=== PATIENT | male | born 1990 | race African-American/Black ===

== ENCOUNTER 2021-01-02 15:21 | Emergency (ER) | payer OTHER ==
[2021-01-02 15:41] VITALS: BP 136/86; PULSE 85; TEMP 98.1; BMI 40.6
[2021-01-02] MEDS ORDERED: KETOROLAC TROMETHAMINE 30 MG/1 ML VIAL IM ONE (16:16)
[2021-01-02] MEDS ORDERED: KETOROLAC TROMETHAMINE 30 MG/1 ML VIAL ONE (17:15)
== END 2021-01-02 18:05 | disposition home or self-care (01) ==
LOC: JERFT 15:21
PROC: 3E0233Z Introduction of Anti-inflammatory into Muscle, Percutaneous Approach (ICD-10-PCS; principal; 2021-01-02)
DX: M54.5 Low back pain (principal)
CPT/HCPCS: 72050-TC-FY; 72070-TC-FY; 72100-TC-FY; 99284-25

== ENCOUNTER 2021-03-05 22:13 | Emergency (ER) | payer OTHER ==
[2021-03-05 22:16] VITALS: BP 122/84; PULSE 97; TEMP 97; BMI 38.0
[2021-03-05] MEDS ORDERED: CEPHALEXIN MONOHYDRATE 500 MG CAPSULE (UD) PO ONE (23:06)
[2021-03-05] MEDS ORDERED: IBUPROFEN 600 MG TABLET (FP) PO ONE ×2 (23:06→23:21)
[2021-03-05] MEDS ORDERED: SULFAMETHOXAZOLE/TRIMETHOPRIM 800MG/160MG D.S. TABLET PO ONE (23:06)
[2021-03-05] MEDS ORDERED: CEPHALEXIN MONOHYDRATE 500 MG CAPSULE (UD) ONE (23:21)
[2021-03-05] MEDS ORDERED: SULFAMETHOXAZOLE/TRIMETHOPRIM 800MG/160MG D.S. TABLET ONE (23:22)
== END 2021-03-05 23:51 | disposition home or self-care (01) ==
LOC: JER 22:13
DX: B35.3 Tinea pedis (principal); L03.116 Cellulitis of left lower limb; L02.612 Cutaneous abscess of left foot
CPT/HCPCS: 73630-TC-LT; 82962; 99284-25